=== PATIENT | male | born 2000 | race Caucasian/White ===

== ENCOUNTER → 2023-09-30 | Outpatient (REF) | payer OTHER ==
[2023-09-30 10:44] LABS: SEMEN APPEARANCE OPAQUE (OPAQUE); SEMEN VISCOSITY LIQUID (LIQUID); SEMEN VOLUME 3.5 ml (2.0-5.0); SPERM CONCENTRATION 153.8 M/ml (>=15.0); WBC CONCENTRATION <=1 M/ml (<=1 M/ml)
== END ==
LOC: M LAB REF 10:28
PROVIDERS: ATTEND Nurse Practitioner Family
DX: N46.9 Male infertility, unspecified (principal)

== ENCOUNTER 2024-10-30 20:43 | Emergency (ER) | payer OTHER ==
[~2024-10-30] VITALS: Ht 175.3 cm; Wt 97.0 kg
[2024-10-30 21:01] VITALS: BP 115/83; TEMP 98.2; O2SAT 100
[2024-10-31] MEDS ORDERED: ALLE60TA69 PO (12:54)
[2024-10-31] MEDS ORDERED: PRED20TA PO (16:08)
== END 2024-10-30 23:19 | disposition left against medical advice (07) ==
LOC: M ED 20:43
DX: Z53.21 Procedure and treatment not carried out due to patient leaving prior to being seen by health care provider (principal)

== ENCOUNTER 2024-10-31 12:45 | Emergency (ER) | payer OTHER ==
[~2024-10-31] VITALS: Ht 175.3 cm; Wt 97.2 kg
[2024-10-31 12:48] VITALS: TEMP 97.8
[2024-10-31] MEDS ORDERED: ALLE60TA69 PO (12:54)
[2024-10-31 15:01] LABS: BASO # 0.0 10^3/uL (0.0-0.2); BASO % 0.4 % (0.0-1.0); EOS # 0.1 10^3/uL (0.0-0.5); EOS % 1.2 % (0.0-3.0); LYMPH # 2.3 10^3/uL (1.5-5.0); LYMPH % 27.3 % (24.0-44.0); MONO # 0.6 10^3/uL (0.0-0.8); MONO % 7.3 % (2.0-8.0); NEUTROPHILS # 5.3 10^3/uL (1.5-8.5); NEUTROPHILS % 63.7 % (36.0-66.0); PLATELET COUNT, AUTOMATED 165 10^3/uL (150-450)
[2024-10-31] MEDS: FAMOTIDINE 20 MG/2 ML VIAL IVP ONE (15:06)
[2024-10-31 15:26] LABS: ALT/SGPT 26 U/L (7.0-40); AST/SGOT 22 U/L (<34); CALCIUM LEVEL 10.3 MG/DL (8.5-10.1); CARBON DIOXIDE LEVEL 28 MMOL/L (20-31); CHLORIDE LEVEL 105 MMOL/L (98-107); CREATININE FOR GFR 1.15 MG/DL (0.70-1.30); GLOMERULAR FILTRATION RATE > 90.0 (>60); POTASSIUM SERUM 4.5 MMOL/L (3.5-5.1); SODIUM LEVEL 145 MMOL/L (136-145)
[2024-10-31] MEDS ORDERED: PRED20TA PO (16:08)
[2024-10-31 16:15] VITALS: O2SAT 97
[2024-10-31 16:27] VITALS: BP 120/76
== END 2024-10-31 16:31 | disposition home or self-care (01) ==
LOC: M ED 12:45
DX: R21 Rash and other nonspecific skin eruption (principal); Z91.048 Other nonmedicinal substance allergy status; Z79.52 Long term (current) use of systemic steroids; Z79.899 Other long term (current) drug therapy
CPT/HCPCS: 80048; 80076; 85025; 87486; 87581; 87633; 87798; 93041; 94760; 96374; 99284; J1308; J2919